=== PATIENT | male | born 1950 | race Caucasian/White ===

== ENCOUNTER 2024-03-11 20:55 | Emergency (ER) | payer MEDICARE, OTHER, SELFPAY ==
[2024-03-11 20:55] VITALS: BMI 25.4
[2024-03-11 20:56] VITALS: BP 176/96
[2024-03-11 21:11] LABS: % Basophils 0.9 % (0-2); % Eosinophils 1.3 % (0-6); % Immature Granulocytes 0.4 % (0-0.5); % Lymphocytes 36.4 % (20.5-51.1); Absolute Basophils 0.1 10^3/uL (0-0.2); Absolute Eosinophils 0.1 10^3/uL (0-0.7); Absolute Lymphocytes 2.8 10^3/uL (1.2-3.4); Absolute Monocytes 0.8 10^3/uL (0.1-0.6); Absolute Neutrophils 3.9 10^3/uL (1.4-6.5); Hematocrit 40.8 % (39.0-52.0); Hemoglobin 14.4 g/dL (13.0-18.0); Mean Corp Hgb Conc. 35.3 g/dL (33.0-37.0); Mean Corpuscular Volume 87.9 fL (80.0-94.0); Mean Platelet Volume 8.6 fL (7.4-10.4); Nucleated Red Blood Cells % 0 % (-); Platelet Count 229 10^3/uL (130-400); Red Blood Cell Count 4.64 10^6/uL (4.70-6.10); Red Cell Dist. Width 13.6 % (11.5-14.5); White Blood Cell Count 7.7 10^3/uL (4.8-10.8)
[2024-03-11 21:25] LABS: ALT (SGPT) 46 U/L (0-50); AST (SGOT) 44 U/L (17-59); Albumin 4.2 g/dl (3.5-5.0); Alkaline Phosphatase 75 U/L (38-126); Blood Urea Nitrogen 26 mg/dl (9-20); Calcium 9.5 mg/dl (8.4-10.2); Carbon Dioxide 26 mmol/L (22-30); Chloride 104 mmol/L (98-107); Glucose 96 mg/dl (70-99); Potassium 4.4 mmol/L (3.5-5.1); Sodium 138 mmol/L (135-145); Total Bilirubin 0.5 mg/dl (0.2-1.3); Total Protein 7.3 g/dl (6.3-8.2); eGFR > 60.00
--- NOTE | 2024-03-11 23:11 | ED.GENMED ---
History of Present Illness
<XANDER Macario - Last Filed: 03/13/24 22:57>
General
Chief Complaint: Abdominal Pain
Source: patient
Exam Limitations: none
Time Seen by Provider: 03/11/24 22:08
Nursing documentation reviewed up to this point in time: agreed with
Travel History
Have you had any contact with someone who has COVID-19?: No
Do you have any symptoms of coronavirus? Fever > 100 degrees, chills, cough, shortness of breath, sore throat, loss of taste or smell, muscle aches, or headache?: No
History of Present Illness
History of Present Illness:
Patient is a 73 old male who complains of abdominal pain and right lower groin pain for the past several hours. Patient reports initially he had pain' over the bladder region however pain became more localized over the right groin area. He has a
known right inguinal hernia but typically does not have pain from hernia. He does admit today he was doing a lot of lifting and noticed it was out today. He denies any back pain. Denies any new frequency urgency or dysuria
Review of Systems
<XANDER Macario - Last Filed: 03/13/24 22:57>
Review of Systems
Allergies reviewed?: Yes
All Other Systems: ROS reviewed and negative except as documented in HPI and ROS
Constitutional: Reports no symptoms; Denies fever, fatigue or chills
Respiratory: Reports no symptoms
Cardiac: Reports no symptoms
ABD/GI: Reports other (right groin /rlq pain ); Denies nausea or vomiting
: Reports no symptoms
Skin: Reports no symptoms
Neurological: Reports no symptoms
Endocrine: Reports no symptoms
Hematologic/Lymphatic: Reports no symptoms
Psychiatric: Reports no symptoms
Phy Exam
<XANDER Macario - Last Filed: 03/13/24 22:57>
General Physical Exam
General Presentation: well appearing
General age: appears stated age
General Skin: warm and dry
General Habitus: normal
General Mental: alert
General Hydration: appears well hydrated
Gastrointestinal Exam
Gastrointestinal Exam: normal bowel sounds, soft and other (+ swelling to right inguinal region )
Neurological Exam
Neurological Exam: alert and oriented x3
Musculoskeletal Exam
Musculoskeletal Exam: full ROM
Skin Exam
Skin Exam: normal color and warm/dry
Psychiatric Exam
Psychiatric Exam: normal mood/affect
Course
<XANDER Macario - Last Filed: 03/13/24 22:57>
Orders/Labs/Results
Orders:
Orders
03/11/24 21:03
CMP [Comprehensive Metabolic Panel] Urgent
Complete Blood Count/With Diff Urgent
03/11/24 23:43
Urinalysis Urgent
Date Specimen was Collected: 03/11/24
Time Specimen was Collected: 20:59
03/12/24 00:04
CT Abd/pelvis W Iv Cont Urgent
Reason For Exam: rlq pain known inguinal hernia
03/12/24 00:15
Ketorolac [Toradol] 15 mg IV NOW STA
03/12/24 03:04
Morphine Sulfate 4 mg IV NOW STA
Abnormal Lab Results
03/11/24
21:03
RBC 4.64 L 10^6/uL
(4.70-6.10)
Absolute Monos (auto) 0.8 H 10^3/uL
(0.1-0.6)
Monocytes % 10.0 H %
(1.7-9.3)
BUN 26 H mg/dl
(9-20)
03/11/24 21:03
03/11/24 21:03
Vital Signs
Initial and Last Documented VS:
Initial Vital Signs
Temp Pulse Resp BP Pulse Ox
97.9 F 58 22 176/96 97
03/11/24 20:56 03/11/24 20:56 03/11/24 20:56 03/11/24 20:56 03/11/24 20:56
Last Documented Vital Signs
Temp Pulse Resp BP Pulse Ox
97.9 F 60 14 142/80 98
03/11/24 20:56 03/12/24 03:00 03/12/24 03:00 03/12/24 03:00 03/12/24 03:00
<Clara Thompson, DO - Last Filed: 03/12/24 03:53>
Orders/Labs/Results
Orders:
Orders
03/11/24 21:03
CMP [Comprehensive Metabolic Panel] Urgent
Complete Blood Count/With Diff Urgent
03/11/24 23:43
Urinalysis Urgent
Date Specimen was Collected: 03/11/24
Time Specimen was Collected: 20:59
03/12/24 00:04
CT Abd/pelvis W Iv Cont Urgent
Reason For Exam: rlq pain known inguinal hernia
03/12/24 00:15
Ketorolac [Toradol] 15 mg IV NOW STA
03/12/24 03:04
Morphine Sulfate 4 mg IV NOW STA
Abnormal Lab Results
03/11/24
21:03
RBC 4.64 L 10^6/uL
(4.70-6.10)
Absolute Monos (auto) 0.8 H 10^3/uL
(0.1-0.6)
Monocytes % 10.0 H %
(1.7-9.3)
BUN 26 H mg/dl
(9-20)
03/11/24 21:03
03/11/24 21:03
Vital Signs
Initial and Last Documented VS:
Initial Vital Signs
Temp Pulse Resp BP Pulse Ox
97.9 F 58 22 176/96 97
03/11/24 20:56 03/11/24 20:56 03/11/24 20:56 03/11/24 20:56 03/11/24 20:56
Last Documented Vital Signs
Temp Pulse Resp BP Pulse Ox
97.9 F 60 14 142/80 98
03/11/24 20:56 03/12/24 03:00 03/12/24 03:00 03/12/24 03:00 03/12/24 03:00
<XANDER Macario - Last Filed: 03/13/24 22:57>
MDM/Problems Addressed
MDM/Problems Addressed:
Patient with known inguinal hernia however now complains of pain to the area there is obvious hernia palpated and on CAT scan. Patient is tender throughout the area. No appendicitis or stone visualized on CAT scan. Patient evaluated by Dr Thompson
who will plan to medicate and reduce hernia.
<XANDER Macario - Last Filed: 03/13/24 22:57>
*Critical Care Note
Total Time (30-74mins, 75-104mins- exclusive of procedures): Not Applicable
ED Attending Note
<XANDER Macario - Last Filed: 03/13/24 22:57>
-
Portions of this chart may have been created with voice recognition software.� Occasional wrong word or��sound alike� substitutions may have occurred due to the inherent limitations of voice recognition software.
<Clara Thompson DO - Last Filed: 03/12/24 03:53>
ED Attending Note
Patient seen and examined by attending physician: Yes
I performed the substantive portion of visit, reviewed & personally made and approve the management plan that is documented in note by myself or SHI.: Yes
I performed a history and physical exam of patient and discussed management with resident, I reviewed resident's note and agree with documented findings and plan of care.: Yes
ED Attending Note:
This is a 73-year-old gentleman who has history of intermittent painless right inguinal hernia that he states 'comes and goes' but generally reduces on its own and is never painful.
He presents tonight with painful right inguinal hernia that began this afternoon and has been persistent throughout the day. No nausea or vomiting, no diarrhea or constipation, no dysuria urgency or hematuria.
He does admit to some heavy lifting while at a [employer] yesterday afternoon.
CAT scan shows a right inguinal hernia that is larger than previous imaging containing a loop of small bowel that is mildly congested. There is no evidence of bowel obstruction. Normal appendix.
Exam remarkable for large right inguinal hernia that is moderately firm and moderately tender to palpation.
Labs are unremarkable.
Concern for painful/incarcerated inguinal hernia and thus far no evidence of small bowel obstruction but with persistence of hernia concern for progression of small bowel inflammation and ensuing obstruction.
Thus will attempt manual reduction. Patient has been placed in supine position, local ice to hernia and will give an IV dose of morphine prior to manual reduction attempt.
03/12/2024 0350 AM
Right inguinal hernia successfully manually reduced.
Patient tolerated hernia reduction well. He is currently resting comfortably. No further inguinal tenderness nor palpable mass. Abdomen is soft and nontender.
Will discharge to home with recommendations for follow-up with general surgery.
Recommend Tylenol versus ibuprofen as needed for discomfort and discussed importance of avoidance of heavy lifting, avoidance of straining/Valsalva maneuvers.
Return precautions discussed.
Discharge Plan
Departure
Patient Disposition: Home (Routine Discharge)
Date of Disposition: 03/12/24
Time of Disposition: 03:49
Patient with high blood pressure during this ER visit?: No
Condition: Good
Discharge Problem:
Incarcerated right inguinal hernia, manual reduction of inguinal hernia
Instructions: Groin Hernia (DC)
Prescriptions:
No Action
Magnesium
100 mg PO DAILY
Ramipril
10 mg PO DAILY
Vitamin D3:
1,000 mg PO DAILY
Zinc
50 mg PO DAILY
Referrals:
Bryan Louise DO [Family Provider] - Call in 1-3 days for appt
Danilo Love MD [Active] - Call in 1-3 days for appt
Interventions
Interventions:
*Risk Screen - Suicide Last Done: 03/11/24 20:56
*General Assessment Last Done: 03/11/24 23:19
*Neglect/Abuse Screening Last Done: 03/11/24 20:56
ED- Fall Risk Assessment Last Done: 03/11/24 23:19
*ED COVID-19 Vaccine History Last Done: 03/11/24 23:19
*Nursing Disposition Last Done: 03/12/24 04:23
WP-Fkwzqt-Zzpquivlby Assessment Last Done: 03/11/24 23:19
Discharge Date and Time
Discharge Date/Time: 03/12/24 04:24
Print Language: HEBREW
[2024-03-11 23:58] LABS: Urine Albumin Negative (Neg - Trace); Urine Bilirubin Negative (Negative); Urine Character Clear (Clear); Urine Color Yellow; Urine Glucose Negative (Negative); Urine Ketone Negative (Negative); Urine Leukocyte Negative (Negative); Urine Nitrite Negative (Negative); Urine Occult Blood Negative (Negative); Urine Urobilinogen Negative (Neg - 1+)
[2024-03-12 01:00] VITALS: BP 148/88
[2024-03-12] MEDS: TORADOL 15 MG IV (01:05)
[2024-03-12 03:00] VITALS: BP 142/80
[2024-03-12] MEDS: MORPHINE SULFATE 4 MG IV (03:21)
== END 2024-03-12 04:24 | disposition home or self-care (01) ==
LOC: EMR 20:55
PROVIDERS: Emergency Medicine; EMERGENCY PHYSICIAN Emergency Medicine; FAMILY PHYSICIAN Family Medicine
DX: K40.30 Unilateral inguinal hernia, with obstruction, without gangrene, not specified as recurrent (principal)
CPT/HCPCS: 99285; 96374; 96375; 74177; 80053; 81003; 85025; Q9967

== ENCOUNTER → 2024-04-12 11:55 | Outpatient (REF) | payer MEDICARE, OTHER, SELFPAY | LOC: SDSPAT 11:55 | PROVIDERS: ATTENDING PHYSICIAN Surgery; FAMILY PHYSICIAN Family Medicine | DX: K40.90 Unilateral inguinal hernia, without obstruction or gangrene, not specified as recurrent (principal) | CPT/HCPCS: 36415; 93005 ==

== ENCOUNTER 2024-05-07 06:38 | Day surgery (SDC) | payer MEDICARE, OTHER, SELFPAY ==
[2024-04-12 12:20] VITALS: BMI 25.8
[2024-05-07] VITALS (8 sets, daily range): BP systolic 122–159; BP diastolic 61–85; BMI 25.8
[2024-05-07] MEDS: TYLENOL 1000 MG PO (11:40)
[2024-05-07] MEDS: NORMOSOL-R 1000 IV (11:41)
--- NOTE | 2024-05-07 14:22 | OR.RPT ---
Operative Report
Operative Report
Primary Surgeon: Radha
Assisting: Nathalie TURNER
Pre-op Diagnosis: Right inguinal hernia
Post-op Diagnosis: Same
Procedure Performed: Robot assisted laparoscopic repair of right inguinal hernia
Anesthesia Type: GETA
Specimen / Cultures: None
Estimated Blood Loss: 15cc
Complications: None immediate
Operative Findings: Moderate scarring around the vessels; indirect defect with large cord lipoma; XL MID 3D Max
Date of surgery: 04/16/24
Indications:� This 74M developed symptomatic right inguinal hernia. There was concern on imaging for a left inguinal hernia, he asked that we repair only the right side today. Robot assisted laparoscopic repair was planned.
Description of procedure:� The patient was taken to the operating room and positioned into supine position. The patient�s abdomen was prepped and draped in standard sterile fashion. A time-out was completed verifying correct patient, procedure,
site, positioning, and implants and special equipment prior to beginning this procedure.� The hernia was manually reduced after induction. A stab incision was made in the left upper quadrant, a Veress needle was inserted and proper position was
confirmed by aspiration and saline drop test. Following this, pneumoperitoneum was created with insufflation of carbon dioxide to 12 mmHg. Then a 8mm robotic trocar was inserted above and to the left of the umbilicus. A laparoscope was inserted and
the area of initial trocar entry and Veress needle placement were both inspected and no injuries were found. Two 8mm trocars were then placed lateral to the rectus sheath under direct visualization.
Both inguinal regions were inspected and the median umbilical ligament, medial umbilical ligament, and lateral umbilical fold were identified. Attention was turned to the right groin where a defect was identified. The peritoneum was incised
transversely above the defect and a flap was developed in the caudad direction. Corky�s ligament was identified ultimately dissected to its junction with the iliac vein and the space of Retzius was developed bluntly.� The dissection was continued
inferiorly to the iliopubic tract, with care taken to avoid injury to the femoral branch of the genitofemoral nerve and the lateral femoral cutaneous nerve. The cord structures were parietalized. There was moderate scarring around the pelvic brim
and major vessels, this was carefully taken down with a combination of cautery, cold mikhail and blunt sweeps.
The direct space was inspected and a hernia was not identified. The femoral space was inspected no defect was identified.� The indirect space was inspected and a hernia was identified and reduced by gentle traction. The canal was inspected and a
large cord lipoma was identified.
Extra large right MID 3D max mesh was passed through a trocar. The mesh was placed into the preperitoneal space and moved into position to lay flat and completely cover the direct, indirect, and femoral spaces with overlap at the midline. The mesh
was secured into place using 2-0 vicryl suture to Corky�s ligament medially and laterally. Care was taken to avoid the inferolateral triangles containing the iliac vessels and genital nerves. The peritoneal flap was closed over the mesh and secured
with 2-0 monocryl stratafix suture in similar positions of safety. A 14g angiocath was used to decompress the preperitoneal space revealing good seal and all mesh in good position without folding or curling.
After ensuring adequate hemostasis, the trocars were removed and the pneumoperitoneum allowed to escape. The trocar incisions were closed at the skin level using 4-0 monocryl and topical skin adhesive. All counts were correct and the patient
tolerated the procedure well and was taken to the postanesthesia care unit in stable condition.
The assistance of Nathalie TURNER was required due to the complexity of the procedure. During the procedure she assisted with retraction, resection, and closure of the wound.
[2024-05-07] MEDS: ROXICODONE 5 MG PO (16:13)
== END 2024-05-07 16:44 | disposition home or self-care (01) ==
LOC: SDS 06:38
PROVIDERS: ATTENDING PHYSICIAN Surgery; FAMILY PHYSICIAN Family Medicine
DX: K40.90 Unilateral inguinal hernia, without obstruction or gangrene, not specified as recurrent (principal)
CPT/HCPCS: 49650; C1781

== ENCOUNTER → 2024-09-19 12:40 | Outpatient (REF) | payer MEDICARE, OTHER, SELFPAY | LOC: PAVMRI 12:40 | PROVIDERS: ATTENDING PHYSICIAN Family Medicine | DX: M48.062 Spinal stenosis, lumbar region with neurogenic claudication (principal) | CPT/HCPCS: 72148 ==